=== PATIENT | male | born 1980 | race Caucasian/White ===

== ENCOUNTER 2017-12-21 19:44 | Emergency (ER) | payer OTHER ==
[2017-12-21] MEDS ORDERED: Sodium Chloride 0.9% 10 ML Syringe FLUSH PRN (20:04)
[2017-12-21] MEDS ORDERED: Sodium Chloride 0.9% 500 ML IV ONE (20:07)
--- NOTE | 2017-12-21 20:15 | EDM.PDOC ---
ED HPI GENERAL MEDICAL PROBLEM - General Chief Complaint: Syncope Stated Complaint: EXTREME FATIUGE CAME ON FAST DISORIENTED Time Seen by Provider: 12/21/17 19:56 Source of Information: Reports: Patient, Family (Spouse), RN Notes Reviewed - History of Present Illness INITIAL COMMENTS - FREE TEXT/NARRATIVE: 37 year old with progressive altered mental status over the past hour. He had been feeling fine earlier today with no unusual sx. His states they played coed volleyball this later afternoon, early evening. He seemed to be "slowing down" the last volley ball match but no specific complaints. On the way home told his "he was not feeling well, felt tired", mild throat discomfort, mild nausea. He denies Angulo, neck, chest, abd or other pain at this time. No hx of diabetes. Does not take any meds on a regular basis. Had apparently been out icefishing this afternoon prior to the volleyball. - Related Data Allergies Allergy/AdvReac Type Severity Reaction Status Date / Time No Known Allergies Allergy Verified 12/21/17 19:53 Home Meds: Home Meds . [No Known Home Meds] 12/21/17 [History] Past Medical History - Past Health History Medical/Surgical History: Denies Medical/Surgical History Social & Family History - Tobacco Use Smoking Status *Q: Never Smoker - Recreational Drug Use Recreational Drug Use: No ED ROS GENERAL - Review of Systems Review Of Systems: See Below Constitutional: Denies: Fever, Chills HEENT: Reports: Throat Pain (mild) Respiratory: Denies: Shortness of Breath, Wheezing, Pleuritic Chest Pain, Cough Cardiovascular: Denies: Chest Pain GI/Abdominal: Reports: Nausea. Denies: Abdominal Pain, Vomiting Musculoskeletal: Denies: Neck Pain, Back Pain, Leg Pain Skin: Reports: No Symptoms Neurological: Reports: Dizziness, Trouble Speaking (speaking very soft ), Weakness (generalized). Denies: Numbness, Tingling - Physical Exam Exam: See Below Exam Limited By: Altered Mental Status General Appearance: Other (patient is awake but slow to answer questions, speaking very quietly in a "hushed voice", cooperative with exam) Eye Exam: Bilateral Eye: PERRL Ears: Normal External Exam Nose: Normal Inspection Throat/Mouth: Normal Inspection, Other (pharynx is inflamed, no exudates) Head Exam: Atraumatic. No: Scalp Lacerations, Scalp Swelling, Scalp Ecchymosis , Scalp Hematoma, Facial Swelling Neck: Supple, Full Range of Motion. No: Lymphadenopathy (L), Lymphadenopathy (R ) Respiratory/Chest: No Respiratory Distress, Lungs Clear, Normal Breath Sounds Cardiovascular: Regular Rate, Rhythm GI/Abdominal: Soft, Non-Tender Neuro Exam (Abbreviated): No Motor/Sensory Deficits (strong grasp bilat, no lower leg weakness), Other (awake but not showing normal alertness, does answer question, follows commands) Back Exam: No: CVA Tenderness (L), CVA Tenderness (R) Extremities: No: Pedal Edema, Leg Pain, Increased Warmth, Redness Psychiatric: Flat Affect. No: Anxious Skin Exam: Warm, Dry, No Rash EKG INTERPRETATION EKG Date: 12/21/17 [place]: Normal P-Wave: Present QRS: Normal ST-T: Normal Course - Vital Signs Last Recorded V/S: Last Vital Signs Temp Pulse 96 12/21/17 19:55 Resp 16 12/21/17 19:55 BP 141/96 H 12/21/17 19:55 Pulse Ox 99 12/21/17 19:55 - Orders/Labs/Meds Orders: Active Orders 24 hr Category Date Time Status EKG 12 Lead [EKG Documentation Completion] [] STAT Care 12/21/17 20:04 Active POC Glucose [Blood Glucose Check, Bedside] [] ONETIME Care 12/21/17 20:04 Active Peripheral IV Care [] . DIRECTED Care 12/21/17 20:05 Active CULTURE STREP A CONFIRMATION [] Stat Lab 12/21/17 20:42 Results STREP SCRN A RAPID W CULT CONF [] Stat Lab 12/21/17 20:42 Results Peripheral IV Insertion Adult [OM.PC] Stat Oth 12/21/17 20:05 Ordered Labs: Laboratory Tests 12/21/17 12/21/17 12/21/17 Range/Units 19:05 20:05 20:05 WBC 5.99 (4.23-9.07) K/mm3 RBC 5.14 (4.63-6.08) M/mm3 Hgb 15.0 (13.7-17.5) gm/L Hct 42.8 (40.1-51.0) % MCV 83.3 (79.0-92.2) fl MCH 29.2 (25.7-32.2) pg MCHC 35.0 (32.2-35.5) g/dl RDW Std Deviation 42.0 (35.1-43.9) fL Plt Count 241 (163-337) K/mm3 MPV 9.7 (9.4-12.3) fl Neut % (Auto) 36.0 (34.0-67.9) % Lymph % (Auto) 47.2 (21.8-53.1) % [place] % (Auto) 8.8 (5.3-12.2) % Eos % (Auto) 7.5 H (0.8-7.0) Baso % (Auto) 0.3 (0.1-1.2) % Neut # (Auto) 2.15 (1.78-5.38) K/mm3 Lymph # (Auto) 2.83 (1.32-3.57) K/mm3 [place] # (Auto) 0.53 (0.30-0.82) K/mm3 Eos # (Auto) 0.45 (0.04-0.54) K/mm3 Baso # (Auto) 0.02 (0.01-0.08) K/mm3 Sodium 140 (136-145) mEq/L Potassium 3.3 L (3.5-5.1) mEq/L Chloride 102 (98-107) mEq/L Carbon Dioxide 30 (21-32) mEq/L Anion Gap 11.3 (5-15) BUN 15 (7-18) mg/dL Creatinine 1.2 (0.7-1.3) mg/dL Est Cr Clr Drug Dosing 102.69 mL/min Estimated GFR (MDRD) > 60 (>60) mL/min BUN/Creatinine Ratio 12.5 L (14-18) Glucose 121 H (74-106) mg/dL POC Glucose 104 (70-105) mg/dL Calcium 9.2 (8.5-10.1) mg/dL Total Bilirubin 0.7 (0.2-1.0) mg/dL AST 20 (15-37) U/L ALT 29 (16-63) U/L Alkaline Phosphatase 74 (46-116) U/L C-Reactive Protein (<1.0) mg/dL Total Protein 7.7 (6.4-8.2) g/dl Albumin 4.0 (3.4-5.0) g/dl Globulin 3.7 gm/dL Albumin/Globulin Ratio 1.1 (1-2) Urine Opiates Screen (NEGATIVE) Ur Buprenorphine Scrn (NEGATIVE) Ur Oxycodone Screen (NEGATIVE) Urine Methadone Screen (NEGATIVE) Ur Propoxyphene Screen (NEGATIVE) Ur Barbiturates Screen (NEGATIVE) Ur Tricyclics Screen (NEGATIVE) Ur Phencyclidine Scrn (NEGATIVE) Ur Amphetamine Screen (NEGATIVE) U Methamphetamines Scrn (NEGATIVE) U Benzodiazepines Scrn (NEGATIVE) U Cocaine Metab Screen (NEGATIVE) U Marijuana (THC) Screen (NEGATIVE) Ethyl Alcohol 0.00 (0.00) gm% 12/21/17 12/21/17 Range/Units 20:05 21:30 WBC (4.23-9.07) K/mm3 RBC (4.63-6.08) M/mm3 Hgb (13.7-17.5) gm/L Hct (40.1-51.0) % MCV (79.0-92.2) fl MCH (25.7-32.2) pg MCHC (32.2-35.5) g/dl RDW Std Deviation (35.1-43.9) fL Plt Count (163-337) K/mm3 MPV (9.4-12.3) fl Neut % (Auto) (34.0-67.9) % Lymph % (Auto) (21.8-53.1) % [place] % (Auto) (5.3-12.2) % Eos % (Auto) (0.8-7.0) Baso % (Auto) (0.1-1.2) % Neut # (Auto) (1.78-5.38) K/mm3 Lymph # (Auto) (1.32-3.57) K/mm3 [place] # (Auto) (0.30-0.82) K/mm3 Eos # (Auto) (0.04-0.54) K/mm3 Baso # (Auto) (0.01-0.08) K/mm3 Sodium (136-145) mEq/L Potassium (3.5-5.1) mEq/L Chloride (98-107) mEq/L Carbon Dioxide (21-32) mEq/L Anion Gap (5-15) BUN (7-18) mg/dL Creatinine (0.7-1.3) mg/dL Est Cr Clr Drug Dosing mL/min Estimated GFR (MDRD) (>60) mL/min BUN/Creatinine Ratio (14-18) Glucose (74-106) mg/dL POC Glucose (70-105) mg/dL Calcium (8.5-10.1) mg/dL Total Bilirubin (0.2-1.0) mg/dL AST (15-37) U/L ALT (16-63) U/L Alkaline Phosphatase (46-116) U/L C-Reactive Protein < 0.2 (<1.0) mg/dL Total Protein (6.4-8.2) g/dl Albumin (3.4-5.0) g/dl Globulin gm/dL Albumin/Globulin Ratio (1-2) Urine Opiates Screen Negative (NEGATIVE) Ur Buprenorphine Scrn Negative (NEGATIVE) Ur Oxycodone Screen Negative (NEGATIVE) Urine Methadone Screen Negative (NEGATIVE) Ur Propoxyphene Screen Negative (NEGATIVE) Ur Barbiturates Screen Negative (NEGATIVE) Ur Tricyclics Screen Negative (NEGATIVE) Ur Phencyclidine Scrn Negative (NEGATIVE) Ur Amphetamine Screen Negative (NEGATIVE) U Methamphetamines Scrn Negative (NEGATIVE) U Benzodiazepines Scrn Negative (NEGATIVE) U Cocaine Metab Screen Negative (NEGATIVE) U Marijuana (THC) Screen Negative (NEGATIVE) Ethyl Alcohol (0.00) gm% Meds: Medications Discontinued Medications Generic Name Dose Route Start Last Admin Trade Name Freq PRN Reason Stop Dose Admin Sodium Chloride 500 mls @ 999 mls/hr 12/21/17 20:07 12/21/17 20:17 Normal Saline IV 12/21/17 20:37 999 mls/hr .BOLUS ONE Administration Sodium Chloride 10 ml 12/21/17 20:04 12/21/17 20:17 Saline Flush FLUSH 10 ml ASDIRECTED PRN Administration Keep Vein Open - Re-Assessments/Exams Free Text/Narrative Re-Assessment/Exam: 12/21/17 22:22. Patient was really drowsy on arrival, answering questions, cooperative with exam but seemed "fogged in", not showing normal alertness or affect. glucose around 100, stat head CT nl, On repeat exams symptoms were slowly improving over time. Have given 1 liter of IV fluid. Head CT, labs all normal. Now when I went in to check on him just a few minutes ago he is back to normal alertness. continues to deny chest, abd pain, Angulo. Very mild sore throat. Flu screen and rapid strep neg. Departure - Departure Time of Disposition: 22:25 Disposition: Home, Self-Care 01 Condition: Fair Clinical Impression: Altered mental status Qualifiers: Altered mental status type: unspecified Qualified Code(s): R41.82 - Altered mental status, unspecified - Discharge Information Instructions: Confusion Referrals: PCP,None [Primary Care Provider] - Forms: ED Department Discharge Additional Instructions: Your sx of fatigue, altered mental status have resolved with time, 1 liter of IV fluid. Rest. Continue to drink plenty of water. Eat regular meals and snacks. Follow up clinic as needed, return to ED if symptoms worsening in any. - My Orders Last 24 Hours: My Active Orders 12/21/17 20:04 EKG 12 Lead [EKG Documentation Completion] [RC] STAT POC Glucose [Blood Glucose Check, Bedside] [] ONETIME 12/21/17 20:05 Peripheral IV Care [RC] . DIRECTED Peripheral IV Insertion Adult [OM.PC] Stat 12/21/17 20:42 CULTURE STREP A CONFIRMATION [RM] Stat STREP SCRN A RAPID W CULT CONF [] Stat - Assessment/Plan Last 24 Hours: My Active Orders 12/21/17 20:04 EKG 12 Lead [EKG Documentation Completion] [RC] STAT POC Glucose [Blood Glucose Check, Bedside] [RC] ONETIME 12/21/17 20:05 Peripheral IV Care [RC] . DIRECTED Peripheral IV Insertion Adult [OM.PC] Stat 12/21/17 20:42 CULTURE STREP A CONFIRMATION [RM] Stat STREP SCRN A RAPID W CULT CONF [] Stat
--- NOTE | 2017-12-22 12:39 | CT ---
Head CT Technique: Multiple axial sections through the brain were obtained. Intravenous contrast was not utilized. Comparison: No previous intracranial imaging. Findings: Ventricles along with basal cisterns and sulci over the convexities are within normal limits for the patient's age. No abnormal parenchymal densities are seen. No evidence of intracranial hemorrhage. No midline shift or mass effect is seen. Mild mucosal thickening scattered within the ethmoid and frontal sinuses. No acute calvarial abnormality is seen. Impression: 1. Incidental sinus findings. 2. No acute intracranial abnormality is identified. Diagnostic code #2 Agree with preliminary report issued by [facility] ([facility] preliminary report dictated on 12/21/17, 9:35 PM Central Time)
== END 2017-12-21 22:49 | disposition home or self-care (01) ==
LOC: JD.ED 19:44
DX: R41.82 Altered mental status, unspecified (principal)
CPT/HCPCS: 36415; 70450; 80053; 80306; 82962; 85025; 86140; 87081; 87430; 87804; 93005; 96360; 96361; 99285; G0480; J7040; J7050; 99283